=== PATIENT | female | born 1990 | race Caucasian/White ===

== ENCOUNTER → 2021-10-08 | Outpatient (REF) | payer OTHER | LOC: M SFHCADAM 15:49 | PROVIDERS: ATTEND Family Medicine | DX: Z11.52 Encounter for screening for COVID-19 (principal); R50.9 Fever, unspecified | CPT/HCPCS: 87426; G0463; U0003 ==

== ENCOUNTER → 2022-03-25 | Outpatient (CLI) | payer OTHER ==
[2022-03-25 14:03] LABS: HEMATOCRIT 40.1 % (36.0-47.0); HEMOGLOBIN 13.4 g/dl (12.0-15.5); MEAN CORPUSCULAR HEMOGLOBIN 29.5 pg (27.0-33.0); MEAN CORPUSCULAR HGB CONC 33.4 g/dl (32.0-36.5); MEAN CORPUSCULAR VOLUME 88.3 fl (80.0-96.0); PLATELET COUNT, AUTOMATED 260 10^3/uL (150-450); RED BLOOD COUNT 4.54 10^6/uL (4.00-5.40); WHITE BLOOD COUNT 7.3 10^3/uL (4.0-10.0)
[2022-03-25 15:20] LABS: HEPATITIS C VIRUS ABY INDEX < 0.0 INDEX (<0.8); HIV 1&2 SCREEN CENTAUR NEGATIVE (NEGATIVE)
[2022-03-25 19:17] LABS: GC DNA AMPLIFICATION NEGATIVE (NEGATIVE)
== END ==
LOC: M PLALAB 10:29
PROVIDERS: ATTEND Advanced Practice Midwife
DX: Z34.81 Encounter for supervision of other normal pregnancy, first trimester (principal)

== ENCOUNTER → 2022-05-11 | Outpatient (CLI) | payer OTHER | LOC: M WHC 14:55 | PROVIDERS: ATTEND Advanced Practice Midwife | DX: Z36.89 Encounter for other specified antenatal screening (principal); Z3A.18 18 weeks gestation of pregnancy ==

== ENCOUNTER → 2022-07-13 | Outpatient (CLI) | payer OTHER ==
[2022-07-13 14:23] LABS: HEMOGLOBIN 11.3 g/dl (12.0-15.5); MEAN CORPUSCULAR HEMOGLOBIN 30.2 pg (27.0-33.0); MEAN CORPUSCULAR HGB CONC 33.2 g/dl (32.0-36.5); MEAN CORPUSCULAR VOLUME 90.9 fl (80.0-96.0); PLATELET COUNT, AUTOMATED 261 10^3/uL (150-450); RED BLOOD COUNT 3.74 10^6/uL (4.00-5.40); WHITE BLOOD COUNT 7.9 10^3/uL (4.0-10.0)
[2022-07-13 15:51] LABS: GC DNA AMPLIFICATION NEGATIVE (NEGATIVE)
== END ==
LOC: M PLALAB 10:07
PROVIDERS: ATTEND Specialist
DX: Z34.82 Encounter for supervision of other normal pregnancy, second trimester (principal); Z3A.00 Weeks of gestation of pregnancy not specified

== ENCOUNTER → 2022-07-27 | Outpatient (CLI) | payer OTHER | LOC: M WHC 09:44 | PROVIDERS: ATTEND Advanced Practice Midwife | DX: Z34.83 Encounter for supervision of other normal pregnancy, third trimester (principal); Z3A.30 30 weeks gestation of pregnancy ==

== ENCOUNTER → 2022-09-08 | Outpatient (REF) | payer OTHER | LOC: M PLALAB 10:35 | PROVIDERS: ATTEND Advanced Practice Midwife | DX: O22.13 Genital varices in pregnancy, third trimester (principal); Z3A.00 Weeks of gestation of pregnancy not specified ==

== ENCOUNTER 2022-10-05 10:19 | Inpatient (IN) | payer OTHER ==
[2022-10-05] VITALS (29 sets, daily range): BP systolic 100–136; BP diastolic 56–88
[~2022-10-05] VITALS: Ht 154.9 cm; Wt 66.9 kg
[2022-10-05] MEDS ORDERED: METHYLERGONOVINE MALEATE 0.2MG/ML 1ML VIAL IM PRN (11:15)
[2022-10-05] MEDS ORDERED: OXYTOCIN INJ 10UNITS/ML 1ML VIAL IM PRN (11:15)
[2022-10-05] MEDS ORDERED: CARBOPROST TROMETHAMINE 250 MCG/ML AMP IM PRN (11:15)
[2022-10-05] MEDS ORDERED: OXYTOCIN DRIP 30 UNITS in IV 1 EA IV PRN ×4 (11:15)
[2022-10-05] MEDS ORDERED: LIDOCAINE 1% MDV 20ML VIAL INFIL PRN (11:15)
[2022-10-05] MEDS ORDERED: TRANEXAMIC ACID INJection 1,000 MG in NS 100 ML IV PRN (11:15)
[2022-10-05 12:21] LABS: HEMATOCRIT 34.1 % (36.0-47.0); HEMOGLOBIN 11.1 g/dl (12.0-15.5); MEAN CORPUSCULAR HEMOGLOBIN 27.7 pg (27.0-33.0); MEAN CORPUSCULAR HGB CONC 32.6 g/dl (32.0-36.5); PLATELET COUNT, AUTOMATED 189 10^3/uL (150-450); RED BLOOD COUNT 4.01 10^6/uL (4.00-5.40); WHITE BLOOD COUNT 7.4 10^3/uL (4.0-10.0)
[2022-10-05] MEDS ORDERED: NOXI1TAB PO (12:34)
[2022-10-05] MEDS ORDERED: OMEG10002 PO (12:34)
[2022-10-05] MEDS ORDERED: GNP250TA9 PO (12:34)
[2022-10-05] MEDS ORDERED: PRENTAB9 PO (12:34)
[2022-10-05] MEDS ORDERED: ePHEDrine SULFATE 25 MG/5 ML(5MG/ML) SYRINGE IVP PRN (14:35)
[2022-10-05] MEDS ORDERED: diphenhydrAMINE 50MG/ML VIAL IV PRN (14:35)
[2022-10-05] MEDS ORDERED: FENTANYL/ROPIVACAINE/NACL BAG 100 ML EPIDURAL SCH (14:35)
[2022-10-05] MEDS ORDERED: LR 500 ML IV PRN (14:35)
[2022-10-05] MEDS ORDERED: ONDANSETRON 4MG 2ML VIAL IV PRN (14:35)
[2022-10-05] MEDS ORDERED: NALOXONE INJ 0.4MG/1ML VIAL IV PRN (14:35)
[2022-10-05] MEDS ORDERED: EPIDURAL/PCA KEYS XX PRN (14:35)
[2022-10-05] MEDS ORDERED: LR 1,000 ML IV SCH (14:40)
[2022-10-05] MEDS ORDERED: OXYTOCIN DRIP 30 UNITS in IV 1 EA IV SCH ×2 (14:40→20:15)
[2022-10-05] MEDS ORDERED: CALCIUM CARBONATE 500 MG CHEW U/D PO ONE (19:30)
[2022-10-05] MEDS ORDERED: METHYLERGONOVINE MALEATE 0.2 MG TAB PO PRN (20:15)
[2022-10-05] MEDS ORDERED: DOCUSATE SODIUM 100MG CAPSULE PO PRN (20:15)
[2022-10-05] MEDS ORDERED: IBUPROFEN 600MG TAB PO PRN (20:15)
[2022-10-05] MEDS ORDERED: RHOGAM 300MCG (1500IU) INJ IM SCH (20:15)
[2022-10-05] MEDS ORDERED: DIBUCAINE 1% OINTMENT 30GM TOP PRN (20:15)
[2022-10-05] MEDS ORDERED: ACETAMINOPHEN 500 MG TAB PO PRN (20:15)
[2022-10-05] MEDS: IBUPROFEN 800 MG TAB PO PRN (23:39)
[2022-10-06] MEDS: ACETAMINOPHEN TAB 650MG DOSE (2X325MG) PO PRN ×2 (03:58→08:49)
[2022-10-06 06:00] VITALS: BP 120/69
[2022-10-06] MEDS: PRENATAL VITAMINS CHEWABLE TABLET PO SCH (08:04)
[2022-10-06] MEDS: IBUPROFEN 800 MG TAB PO PRN (11:27)
[2022-10-06 18:00] VITALS: BP 129/81
[2022-10-07 06:00] VITALS: BP 120/73
[2022-10-07] MEDS: PRENATAL VITAMINS CHEWABLE TABLET PO SCH (07:55)
[2022-10-07] MEDS: IBUPROFEN 800 MG TAB PO PRN (07:59)
[2022-10-07] MEDS ORDERED: MEASLES,MUMPS,RUBELLA VACCINE INJ (MMR-II) SC.IMMUN ONE (09:00)
== END 2022-10-07 12:45 | disposition home or self-care (01) | DRG 807 ==
LOC: M LDO 10:19 → M LDI 11:14 → M OBS 21:20
PROVIDERS: ADMIT Advanced Practice Midwife; ATTEND Advanced Practice Midwife
PROC: 10E0XZZ Delivery of Products of Conception, External Approach (ICD-10-PCS; principal; 2022-10-05)
PROC: 10907ZC Drainage of Amniotic Fluid, Therapeutic from Products of Conception, Via Natural or Artificial Opening (ICD-10-PCS; 2022-10-05)
DX: O80 Encounter for full-term uncomplicated delivery (principal); Z37.0 Single live birth; Z3A.39 39 weeks gestation of pregnancy

== ENCOUNTER → 2023-01-10 | Outpatient (REF) | payer OTHER ==
[~2023-01-10] MED LIST: GNP250TA9 PO; NOXI1TAB PO; OMEG10002 PO; PRENTAB9 PO
== END ==
LOC: M SFHCWAGY 17:19
PROVIDERS: ATTEND Nurse Practitioner Family
DX: Z12.4 Encounter for screening for malignant neoplasm of cervix (principal)
CPT/HCPCS: 87624; G0123